=== PATIENT | female | born 1955 | race Caucasian/White ===

== ENCOUNTER 2017-06-14 13:02 | Observation (INO) | payer BC ==
[~2017-06-14] VITALS: Ht 167.6 cm; Wt 81.0 kg
[~2017-06-14 13:02] MED LIST: B COMPLETE1 EACH PO; CYTOMEL5 MCG PO; ESTRACE0.5 MG PO; IBUPROFEN400 MG PO; LO-DOSE ASPIRIN81 M1 PO; MICROZIDE12.5 M1 PO; NORCO 5/3251 TABLET PO; NORVASC5 MG PO; PREDNISONE10 MG PO; RESTASIS 01 DROP/0.4 BOTH EYES; SYNTHROID88 MCG PO; TRAMADOL HCL50 MG PO; TUMS500 MG PO; VITAMIN B-6100 MG PO; VITAMIN B12-FO1 EACH PO; VITAMIN D2000 UNIT PO; ZOLOFT100 MG PO
[2017-06-14 13:36] LABS: HEMATOCRIT 43.5 % (36.0-46.0); MCH 29.8 PG (29.0-34.0); MCHC 34.5 G/DL (30.0-36.0); MCV 86.3 FL (83-99); MEAN PLAT.VOLUME 10.2 uM^3 (9.5-12.4); PLATELET COUNT 290 K/uL (156-360); RBC DIS.WIDTH-CV 14.7 % (11.8-14.6); RBC DIS.WIDTH-SD 46.5 % (39-53); RED BLOOD COUNT 5.04 M/uL (3.80-5.20); WHITE BLOOD COUNT 8.2 K/uL (4.1-10.2)
[2017-06-14 13:45] LABS: CHLORIDE 104 mEq/L (99-109); POTASSIUM 3.3 mEq/L (3.7-5.4); SODIUM 142 mEq/L (136-147)
[2017-06-14 13:46] LABS: GLUCOSE 111 mg/dL (70-99)
[2017-06-14 13:48] LABS: ANION GAP 10 MEQ/L (2-14)
[2017-06-14 13:50] LABS: GFR ESTIMATE (CALCULATED) > 59 mL/min/
[2017-06-14 13:51] LABS: UREA NITROGEN (BUN) 11 mg/dL (9-23)
[2017-06-14 13:56] LABS: TROP-I INTERPRETATION NEGATIVE; TROPONIN-I 0.02 ng/mL (0.0-0.30)
[2017-06-14] MEDS ORDERED: ZOLOFT25 MG PO (16:00)
[2017-06-14] MEDS ORDERED: CO Q-1010 MG PO (16:01)
[2017-06-14] MEDS ORDERED: NEURONTIN300 MG PO (16:04)
[2017-06-14] MEDS ORDERED: KENALOG,ARISTOC15 G2 TP (16:11)
[2017-06-14 16:50] LABS: TROP-I INTERPRETATION NEGATIVE; TROPONIN-I 0.02 ng/mL (0.0-0.30)
[2017-06-14 19:56] VITALS: BP 133/74
[2017-06-14 20:48] LABS: TROP-I INTERPRETATION NEGATIVE; TROPONIN-I 0.01 ng/mL (0.0-0.30)
[2017-06-15 00:22] VITALS: BP 110/63
[2017-06-15 02:18] LABS: TROP-I INTERPRETATION NEGATIVE; TROPONIN-I 0.02 ng/mL (0.0-0.30)
[2017-06-15 04:54] VITALS: BP 122/61
[2017-06-15 06:39] LABS: HDL CHOLESTEROL 41 MG/DL (Desirable>=50); LDL CHOLESTEROL 130 mg/dL (Desirable<100); NON-HDL CHOLESTEROL 165 mg/dL (Desirable<160); TOTAL CHOLESTEROL 206 mg/dL (Desirable<200); TRIGLYCERIDES 175 MG/DL (Normal: <150)
[2017-06-15 07:47] VITALS: BP 126/83
[2017-06-15 08:45] LABS: ANION GAP 9 MEQ/L (2-14); CHLORIDE 108 MEQ/L (99-109); SAMPLE HEMOLYSIS CHECK 0; SAMPLE ICTERIC CHECK 0; SAMPLE LIPEMIA CHECK 0; SODIUM 143 MEQ/L (136-147)
[2017-06-15 08:47] LABS: POTASSIUM 4.1 MEQ/L (3.7-5.4)
[2017-06-15 08:50] LABS: GFR ESTIMATE (CALCULATED) > 59 mL/min/; GLUCOSE 98 mg/dL (70-99); UREA NITROGEN (BUN) 13 mg/dL (9-23)
[2017-06-15 10:47] LABS: TROP-I INTERPRETATION NEGATIVE; TROPONIN-I 0.02 ng/mL (0.0-0.30)
== END 2017-06-15 12:17 | disposition home or self-care (01) ==
LOC: EME 13:02 → EDOF 16:23 → ENRESERV 16:25 → 5WEST 19:34
PROVIDERS: Internal Medicine; Nurse Practitioner Adult Health; Physician Assistant
DX: R07.9 Chest pain, unspecified (principal); E89.0 Postprocedural hypothyroidism; Z85.850 Personal history of malignant neoplasm of thyroid; I10 Essential (primary) hypertension; Z87.891 Personal history of nicotine dependence; E87.6 Hypokalemia; Z88.0 Allergy status to penicillin; Z88.2 Allergy status to sulfonamides; Z91.09 Other allergy status, other than to drugs and biological substances; Z91.013 Allergy to seafood; Z88.5 Allergy status to narcotic agent
CPT/HCPCS: 71020; 80048; 80061; 84484; 85027; 93005; 99281; 99285; G0378; J1650